=== PATIENT | male | born 1935 | race Caucasian/White ===

== ENCOUNTER 2022-03-04 23:26 | Emergency (ER) | payer OTHER, MEDICARE, BC ==
[2022-03-05] MEDS ORDERED: Boostrix 0.5 ML (Tdap) VIAL ONE (00:08)
[2022-03-05] MEDS ORDERED: Lidocaine 1% (PF) 30 ML VIAL ONE (01:15)
== END 2022-03-05 01:49 | disposition home or self-care (01) ==
LOC: CSHERS 23:26
DX: S01.01XA Laceration without foreign body of scalp, initial encounter (principal); Z23 Encounter for immunization; W01.10XA Fall on same level from slipping, tripping and stumbling with subsequent striking against unspecified object, initial encounter; Z79.01 Long term (current) use of anticoagulants; Z79.899 Other long term (current) drug therapy
CPT/HCPCS: 12002; 70450; 72125; 90471; 90715; J2001

== ENCOUNTER 2022-04-04 13:34 | Emergency (ER) | payer MEDICARE, BC ==
[2022-04-04] MEDS ORDERED: Morphine 4 MG/ML VIAL ONE ×2 (15:14→17:34)
[2022-04-04] MEDS ORDERED: Ondansetron PF 4 MG/2 ML Vial ONE (15:14)
[2022-04-04 15:44] LABS: #Monocytes 0.9 10x3/uL (0.0-1.1); #Neutrophils 10.4 10x3/uL (1.5-8.4); %Basophils 0.1 % (0.0-2.0); %Lymphocytes 3.2 % (18.0-47.0); %Monocytes 7.6 % (0.0-10.0); %Neutrophils 88.5 % (40.0-75.0); Hemoglobin 10.5 g/dL (13.5-17.5); Mean Corpuscular HGB CONC 33.2 g/dL (32.0-36.0); Mean Corpuscular Hemoglobin 31.8 pg (27.0-33.0); Mean Corpuscular Volume 95.8 fl (81.2-95.1); Mean Platelet Volume 11.6 fl (7.4-10.4); Platelet Count 171 10x3/uL (150-450); RBC Distribution Width 13.5 % (11.5-14.5); White Blood Cell (WBC) Count 11.7 10x3/uL (3.5-10.5)
[2022-04-04 15:59] LABS: ALT (SGPT) 16 U/L (8-55); AST (SGOT) 27 U/L (5-34); Albumin 4.1 g/dL (3.4-4.8); Alkaline Phosphatase 70 U/L (40-110); Anion Gap 18 mmol/L (10-20); BUN (Urea Nitrogen) 38 mg/dL (8.4-25.7); Calc. Creatinine Clearance 0 mL/min (70-130); Calcium 9.2 mg/dL (7.8-10.44); Carbon Dioxide 23 mmol/L (23-31); Chloride 99 mmol/L (98-107); Globulin 2.9 g/dL (2.4-3.5); Glucose 324 mg/dL (83-110); Potassium 4.7 mmol/L (3.5-5.1); Sodium 135 mmol/L (136-145)
[2022-04-04 17:10] LABS: PTT 28.1 sec (22.0-33.0); Prothrombin Time 10.9 sec (9.5-12.1)
[2022-04-04] MEDS ORDERED: Dexamethasone 10 MG/ML VIAL ONE (17:20)
[2022-04-04 17:31] LABS: SARS-CoV-2 NAA Rapid Test Not Detected (NotDetected)
[2022-04-04] MEDS ORDERED: Human Prothrombin Complx(PCC) 500 UNIT VIAL ONE (18:34)
== END 2022-04-04 19:18 | disposition short-term general hospital (02) ==
LOC: CSHERS 13:34
DX: S22.068A Other fracture of T7-T8 thoracic vertebra, initial encounter for closed fracture (principal); T14.8XXA Other injury of unspecified body region, initial encounter; I10 Essential (primary) hypertension; I48.91 Unspecified atrial fibrillation; G83.14 Monoplegia of lower limb affecting left nondominant side; G83.11 Monoplegia of lower limb affecting right dominant side; Z79.01 Long term (current) use of anticoagulants; Z79.899 Other long term (current) drug therapy; W06.XXXA Fall from bed, initial encounter; Y92.009 Unspecified place in unspecified non-institutional (private) residence as the place of occurrence of the external cause
CPT/HCPCS: 72128; 72131; 80053; 85025; 85610; 85730; 96374; 96375; 96376; 99285; J7168; U0002; 36415; J1100; J2270; J2405